=== PATIENT | male | born 1995 | race Caucasian/White ===

== ENCOUNTER → 2019-11-15 09:39 | Outpatient (BNVA) | payer OTHER, SELFPAY | PROVIDERS: Visit Provider Internal Medicine | DX: S93.602D Unspecified sprain of left foot, subsequent encounter (principal); S90.32XD Contusion of left foot, subsequent encounter; X58.XXXD Exposure to other specified factors, subsequent encounter | CPT/HCPCS: 73630; 99214 ==

== ENCOUNTER → 2019-11-18 09:33 | Outpatient (BNVA) | payer SELFPAY | PROVIDERS: PCP Pediatrics; Visit Provider Internal Medicine | DX: Z76.89 Persons encountering health services in other specified circumstances (principal) ==

== ENCOUNTER → 2019-11-21 | Outpatient (BNVA) | payer OTHER, SELFPAY | PROVIDERS: Visit Provider Internal Medicine | DX: Z13.89 Encounter for screening for other disorder (principal) | CPT/HCPCS: 99213 ==